=== PATIENT | male | born 1970 | race Two or more races ===

== ENCOUNTER 2018-08-06 06:59 | Inpatient (IN) | payer MEDICAID ==
[2018-08-06] VITALS (13 sets, daily range): BP systolic 125–152; BP diastolic 74–101
[~2018-08-06] VITALS: Ht 170.2 cm; Wt 92.1 kg
[~2018-08-06 06:59] MED LIST: AMLODIPINE BESYL5 MG ORAL; BUPROPION XL150 MG ORAL; PREVACID30 MG ORAL; TYLENOL EXTRA500 MG ORAL
[2018-08-06] MEDS ORDERED: ceFAZolin sod 1 GM in NS 55 ML IVPB ONE (07:00)
--- NOTE | 2018-08-06 08:39 | Pre-Procedure Note/Attestation ---
Pre-Procedure Note/Attestation Complete Prior to Procedure Planned Procedure: right Procedure Narrative: Laparascopic vs open radical nephrectomy Indications for Procedure Pre-Operative Diagnosis: renal mass Attestation I attest that I discussed the nature of the procedure; its benefits; risks and complications; and alternatives (and the risks and benefits of such alternatives ), prior to the procedure, with the patient (or the patient's legal resources representative). I attest that, if there was a reasonable possibility of needing a blood transfusion, the patient (or the patient's legal resources representative) was given the [facility] standardized written summary, pursuant to the Sixto Ruth Blood Safety Act ([place] Health and Safety Code # 1645, as amended). I attest that I re-evaluated the patient just prior to the surgery and that there has been no change in the patient's H&P, except as documented below: Saran Cali MD Aug 06, 2018 08:39
[2018-08-06] MEDS ORDERED: Bupivacaine 0.5% Inj 30 ml vial INJ ONE (08:40)
[2018-08-06] MEDS ORDERED: Lidocaine 1% MPF 10mg/ml 5ml ONE (09:10)
[2018-08-06] MEDS ORDERED: fentaNYL 100 mcg/2 mL IV ONE ×2 (09:10→09:58)
[2018-08-06] MEDS ORDERED: Midazolam 2mg/2ml Inj ONE (09:10)
[2018-08-06] MEDS ORDERED: Propofol 200mg/20ml IV ONE (09:10)
[2018-08-06] MEDS ORDERED: Zemuron 50mg/5ml Inj IV ONE (09:15)
[2018-08-06] MEDS ORDERED: Succinylcholine 20mg/ml 10ml vial ONE (09:15)
[2018-08-06] MEDS ORDERED: NS Irrig 1000ml ONE (09:21)
[2018-08-06] MEDS ORDERED: Sterile Water Irrig 1000ml IRRIG ONE (09:21)
--- NOTE | 2018-08-06 10:39 | Anethesia Preoperative Eval ---
Anesthesia Pre-op PMH/ROS General Date of Evaluation: Aug 06, 2018 Time of Evaluation: 09:15 Anesthesiologist: Eri Gee CRNA ASA Score: ASA 2 Mallampati Score Class I : Soft palate, uvula, fauces, pillars visible Class II: Soft palate, uvula, fauces visible Class III: Soft palate, base of uvula visible Class IV: Only hard plate visible Mallampati Classification: Class II Surgeon: Viraj Diagnosis: RIGHT renal cancer Surgical Procedure: RIGHT laparoscopic nephrectomy Anesthesia History: none Family History: no anesthesia problems Allergies: Coded Allergies: LATEX (Verified Allergy, Intermediate, 08/05/18) ITCHING, RASH Medications: see eMAR Patient NPO?: Yes NPO Date: Aug 05, 2018 NPO Time: 2100 Past Medical History Cardiovascular: Reports: HTN; Denies: CAD, NE, valve dz, arrhythmia, other Pulmonary: Reports: other - Heavy snoring, denies RADHA Gastrointestinal/Genitourinary: Reports: GERD - on meds, other - RIGHT renal CA diagnosed in January 2018; Denies: CRI, ESRD Neurologic/Psychiatric: Reports: depression/anxiety; Denies: dementia, CVA, TIA, other Endocrine: Denies: DM, hypothyroidism, steroids, other HEENT: Denies: cataract (L), cataract (R), glaucoma, [facility] (L), [facility] (R), other Hematology/Immune: Denies: anemia, DVT, bleeding disorder, other Musculoskeletal/Integumentary: Reports: OA - (B) knees, other - Herniated lumbar disc (+) n/t LEFT leg/foot; sciatica; Denies: RA, DJD, DDD, edema PMH Narrative: as above PSxH Narrative: Appendectomy Anesthesia Pre-op Phys. Exam Physician Exam Last Vital Signs Date Time Temp Pulse Resp B/P (MAP) Pulse Ox O2 Delivery O2 Flow Rate FiO2 08/06/18 07:39 Room Air 08/06/18 07:38 97.9 85 18 128/87 (101) 96 Constitutional: NAD Neurologic: CN 2-12 intact Cardiovascular: RRR Respiratory: CTA Gastrointestinal: S/NT/ND Airway Exam Mallampati Score: Class II MO: full ROM: full Teeth: intact Dentures: no upper, no lower Anesthesia Pre-op A/P Studies Pre-op Studies: EKG - NSR, other - CT (+) right renal tumor; no evidence of metastatic disease Risk Assessment & Plan Assessment: ASA 2 ok to proceed Plan: GETA; potential positioning injury reviewed in addition to other R/B/A on signed consent Status Change Before Surgery: No Pre-Antibiotics Drug: Eri Robb CRNA Aug 06, 2018 10:39
[2018-08-06] MEDS ORDERED: Metoclopramide 10mg/2ml Inj IVP PRN (10:45)
[2018-08-06] MEDS ORDERED: Hydromorphone 0.5mg/0.5ml inj IVP PRN (10:45)
--- NOTE | 2018-08-06 11:00 | Brief Operative Note ---
Immediate Post Operative Note Operative Note Pre-op Diagnosis: renal mass Procedure: right laparoscopic radical nephrectomy Post-op Diagnosis: same Surgeon: coleen cali Anesthesia: general Specimen: yes Complications: none Condition: stable Fluids: 1000 Estimated Blood Loss: minimal Drains: none Implant(s) used?: No Saran Cali MD Aug 06, 2018 11:00
[2018-08-06] MEDS ORDERED: Neostigmine 1mg/ml 10ml Inj ONE (11:06)
[2018-08-06] MEDS ORDERED: Glycopyrrolate 0.2mg/ml 1ml Vial ONE (11:06)
[2018-08-06] MEDS ORDERED: Dexamethasone 4mg/ml vial ONE (11:06)
--- NOTE | 2018-08-06 11:22 | Immediate Post-Op Evaluation ---
Immediate Post-Op Evalulation Immediate Post-Op Evalulation Procedure: RIGHT laparoscopic nephrectomy Date of Evaluation: Aug 06, 2018 Time of Evaluation: 11:10 IV Fluids: LR 1500 ml Estimated Blood Loss: 50 ml Urinary Output: 300 ml Blood Pressure Systolic: 148 Blood Pressure Diastolic: 74 Pulse Rate: 98 Respiratory Rate: 16 O2 Sat by Pulse Oximetry: 100 Temperature (Fahrenheit): 97.6 Pain Score (1-10): 4 Nausea: No Vomiting: No Complications none Patient Status: patent, extubated Hydration Status: adequate Drug: cefazolin Given Within 1 Hr of Incision: Yes Time Given: 09:39 Eri Gee CRNA Aug 06, 2018 11:22
[2018-08-06] MEDS ORDERED: DiphenhydrAMINE 50mg/ml Inj IVP SCH (11:42)
[2018-08-06 12:01] LABS: HEMATOCRIT 41.8 % (42.0-52.0); HEMOGLOBIN 14.1 G/DL (14.2-18.0); MEAN CORPUSCULAR VOLUME 87 FL (80-99); PLATELET COUNT 303 K/UL (150-450); RED BLOOD COUNT 4.83 M/UL (4.70-6.10); RED CELL DISTRIBUTION WIDTH 11.4 % (11.6-14.8); WHITE BLOOD COUNT 15.3 K/UL (4.8-10.8)
--- NOTE | 2018-08-06 12:04 | 48 Hour Post Anesthesia Eval ---
Post Anesthesia Evaluation Procedure: RIGHT laparoscopic nephrectomy Date of Evaluation: Aug 06, 2018 Time of Evaluation: 12:02 Blood Pressure Systolic: 139 0: 93 Pulse Rate: 86 Respiratory Rate: 20 Temperature (Fahrenheit): 97.6 O2 Sat by Pulse Oximetry: 100 Airway: patent Nausea: No Vomiting: No Pain Intensity: 4 Hydration Status: adequate Cardiopulmonary Status: stable Mental Status/LOC: patient returned to baseline Follow-up Care/Observations: per hospitalist and urology; same day admit Post-Anesthesia Complications: none Follow-up care needed: N/A Eri Gee CRNA Aug 06, 2018 12:04
[2018-08-06 12:22] LABS: ANION GAP 11 mmol/L (5-15); BLOOD UREA NITROGEN 10 mg/dL (7-18); CALCIUM 8.6 MG/DL (8.5-10.1); CARBON DIOXIDE 28 MMOL/L (21-32); CHLORIDE 103 MMOL/L (98-107); CREATININE 1.3 MG/DL (0.55-1.30); SODIUM 142 MMOL/L (136-145)
[2018-08-06] MEDS ORDERED: Norco 5mg/325mg tab ORAL PRN (13:21)
[2018-08-06] MEDS ORDERED: HYDROmorphone 1mg/ml Carpuject IVP PRN (13:21)
[2018-08-06] MEDS: D5 1/2NS w/KCl 20mEq 1,000 ML IV SCH (14:10)
--- NOTE | 2018-08-06 14:49 | History and Physical ---
History of Present Illness General Date patient seen: Aug 06, 2018 Present Illness HPI pt is admitted for right laparoscopic radical nephrectomy. Postoperatively he is admitted to surgical floor for post op care. Allergies: Coded Allergies: LATEX (Verified Allergy, Intermediate, 08/05/18) ITCHING, RASH Medication History Scheduled Amlodipine Besylate* (Amlodipine Besylate*), 7.5 MG ORAL DAILY, (Reported) Bupropion Xl* (Bupropion Xl*), 150 MG ORAL DAILY, (Reported) Lansoprazole* (Prevacid*), 30 MG ORAL BID, (Reported) Scheduled PRN Acetaminophen* (Tylenol Extra Strength*), 500 MG ORAL Q6H PRN for Mild Pain/ Temp > 100.5, (Reported) Patient History Healthcare decision maker LUKE BARROS -SISTER Resuscitation status Full Code Advanced Directive on File Review of Systems All Other Systems: negative except mentioned in HPI Physical Exam General Appearance: WD/WN Lines, tubes and drains: peripheral HEENT: normocephalic, atraumatic Neck: non-tender, normal inspection Respiratory/Chest: chest wall non-tender, lungs clear Abdomen: normal bowel sounds, soft Last 24 Hour Vital Signs Date Time Temp Pulse Resp B/P (MAP) Pulse Ox O2 Delivery O2 Flow Rate FiO2 08/06/18 12:58 97.5 88 17 127/85 98 Nasal Cannula 3 08/06/18 12:15 91 14 136/92 96 Nasal Cannula 3 08/06/18 12:05 152/101 08/06/18 12:04 86 20 100 08/06/18 12:00 94 15 152/101 95 Nasal Cannula 3 08/06/18 11:45 91 15 145/93 96 Nasal Cannula 3 08/06/18 11:30 92 17 149/95 100 Simple Mask 6 08/06/18 11:22 98 16 100 08/06/18 11:20 97 14 149/97 100 Simple Mask 6 08/06/18 11:10 97.6 98 16 148/74 100 Simple Mask 6 08/06/18 07:39 Room Air 08/06/18 07:38 97.9 85 18 128/87 (101) 96 Laboratory Tests Test 08/06/18 11:55 White Blood Count 15.3 K/UL (4.8-10.8) H Red Blood Count 4.83 M/UL (4.70-6.10) Hemoglobin 14.1 G/DL (14.2-18.0) L Hematocrit 41.8 % (42.0-52.0) L Mean Corpuscular Volume 87 FL (80-99) Mean Corpuscular Hemoglobin 29.2 PG (27.0-31.0) Mean Corpuscular Hemoglobin Concent 33.7 G/DL (32.0-36.0) Red Cell Distribution Width 11.4 % (11.6-14.8) L Platelet Count 303 K/UL (150-450) Mean Platelet Volume 7.0 FL (6.5-10.1) Neutrophils (%) (Auto) % (45.0-75.0) Lymphocytes (%) (Auto) % (20.0-45.0) Monocytes (%) (Auto) % (1.0-10.0) Eosinophils (%) (Auto) % (0.0-3.0) Basophils (%) (Auto) % (0.0-2.0) Differential Total Cells Counted 100 Neutrophils % (Manual) 89 % (45-75) H Lymphocytes % (Manual) 9 % (20-45) L Monocytes % (Manual) 2 % (1-10) Eosinophils % (Manual) 0 % (0-3) Basophils % (Manual) 0 % (0-2) Band Neutrophils 0 % (0-8) Platelet Estimate Adequate Platelet Morphology Normal Red Blood Cell Morphology Normal Sodium Level 142 MMOL/L (136-145) Potassium Level 4.0 MMOL/L (3.5-5.1) Chloride Level 103 MMOL/L (98-107) Carbon Dioxide Level 28 MMOL/L (21-32) Anion Gap 11 mmol/L (5-15) Blood Urea Nitrogen 10 mg/dL (7-18) Creatinine 1.3 MG/DL (0.55-1.30) Estimat Glomerular Filtration Rate 59.4 mL/min (>60) Glucose Level 108 MG/DL (74-106) H Calcium Level 8.6 MG/DL (8.5-10.1) Height (Feet): 5 Height (Inches): 7.00 Weight (Pounds): 196 Medications Current Medications Medications (Trade) Dose Ordered Sig/Chin Route PRN Reason Start Time Stop Time Status Last Admin Dose Admin Acetaminophen (Tylenol) 650 mg Q4H PRN ORAL FEVER 08/06/18 11:00 09/05/18 10:59 Acetaminophen (Tylenol) 650 mg Q6H PRN ORAL Mild Pain (Pain Scale 1-3) 08/06/18 11:00 09/05/18 10:59 Acetaminophen/ Hydrocodone Bitart (Curlew 5/325) 1 tab Q4H PRN ORAL Moderate Pain (Pain Scale 4-6) 08/06/18 13:21 08/13/18 13:20 Cefazolin Sodium 50 ml @ 100 mls/hr Q8H IV 08/06/18 16:00 08/07/18 00:29 Dextrose/ Electrolytes 1,000 ml @ 100 mls/hr Q10H IV 08/06/18 14:00 09/05/18 13:59 08/06/18 14:10 Docusate Sodium (Colace) 100 mg TWICE A DAY ORAL 08/06/18 18:00 09/05/18 17:59 Hydromorphone HCl (Dilaudid) 1 mg Q3H PRN IVP pain score 4-6 08/06/18 13:24 08/13/18 13:20 Ondansetron HCl (Zofran) 4 mg Q6H PRN IVP Nausea & Vomiting 08/06/18 11:00 09/05/18 10:59 Temazepam (Restoril) 7.5 mg DAILYPRN PRN ORAL Insomnia 08/06/18 11:00 08/13/18 10:59 Assessment/Plan Problem List: (1) radical nephrectomy Assessment/Plan post op care symptomatic treatment dvt prophylaxis check labs in Roxi Armas MD Aug 06, 2018 14:49
[2018-08-06] MEDS ORDERED: ceFAZolin sod 2 GM in D5W 110 ML IV SCH (16:00)
[2018-08-06] MEDS ORDERED: ceFAZolin 2gm/50ml Premix 50 ML IV SCH (16:00)
[2018-08-06] MEDS: ceFAZolin 2gm/50ml Premix 50 ML IV SCH (16:44)
[2018-08-06] MEDS: Docusate 100mg cap ORAL SCH (18:00)
[2018-08-06] MEDS: HYDROmorphone 1mg/ml Carpuject IVP PRN (21:41)
[2018-08-07] VITALS: BP 129/76
[2018-08-07] MEDS: D5 1/2NS w/KCl 20mEq 1,000 ML IV SCH ×3 (00:20→20:00)
[2018-08-07] MEDS: ceFAZolin 2gm/50ml Premix 50 ML IV SCH (00:20)
[2018-08-07 04:00] VITALS: BP 105/63
[2018-08-07] MEDS: HYDROmorphone 1mg/ml Carpuject IVP PRN ×5 (05:33→22:08)
[2018-08-07 06:21] LABS: BASOPHILS % (AUTO) 0.6 % (0.0-2.0); EOSINOPHILS % (AUTO) 0.1 % (0.0-3.0); HEMATOCRIT 38.3 % (42.0-52.0); LYMPHOCYTES % (AUTO) 11.3 % (20.0-45.0); MEAN CORPUSCULAR VOLUME 87 FL (80-99); MONOCYTES % (AUTO) 7.8 % (1.0-10.0); NEUTROPHILS % (AUTO) 80.2 % (45.0-75.0); PLATELET COUNT 273 K/UL (150-450); RED BLOOD COUNT 4.43 M/UL (4.70-6.10); RED CELL DISTRIBUTION WIDTH 11.7 % (11.6-14.8); WHITE BLOOD COUNT 13.3 K/UL (4.8-10.8)
[2018-08-07 06:56] LABS: ALANINE AMINOTRANSFERASE 23 U/L (12-78); ALBUMIN 3.6 G/DL (3.4-5.0); ALBUMIN/GLOBULIN RATIO 0.9 (1.0-2.7); ALKALINE PHOSPHATASE 53 U/L (46-116); ANION GAP 9 mmol/L (5-15); ASPARTATE AMINO TRANSFERASE 34 U/L (15-37); BILIRUBIN,TOTAL 0.7 MG/DL (0.2-1.0); BLOOD UREA NITROGEN 9 mg/dL (7-18); CALCIUM 8.6 MG/DL (8.5-10.1); CARBON DIOXIDE 27 MMOL/L (21-32); CHLORIDE 102 MMOL/L (98-107); CREATININE 1.5 MG/DL (0.55-1.30); SODIUM 138 MMOL/L (136-145)
[2018-08-07 07:06] LABS: PHOSPHORUS 3.8 MG/DL (2.5-4.9)
[2018-08-07 08:00] VITALS: BP 119/78
[2018-08-07] MEDS: Docusate 100mg cap ORAL SCH ×2 (09:41→17:30)
[2018-08-07] MEDS: BuPROPion XL 150mg tab ORAL SCH (09:42)
[2018-08-07 12:00] VITALS: BP 118/73
[2018-08-07 16:00] VITALS: BP 143/86
[2018-08-07 20:00] VITALS: BP 115/72
[2018-08-08] VITALS: BP 118/75
[2018-08-08 04:00] VITALS: BP 110/75
[2018-08-08] MEDS: HYDROmorphone 1mg/ml Carpuject IVP PRN ×4 (04:42→20:12)
[2018-08-08] MEDS: D5 1/2NS w/KCl 20mEq 1,000 ML IV SCH ×2 (06:21→15:02)
--- NOTE | 2018-08-08 07:46 | Operative Note - Dictated ---
DATE OF OPERATION: 08/06/2018 PREOPERATIVE DIAGNOSIS: Right renal mass. POSTOPERATIVE DIAGNOSIS: Right renal mass. OPERATION: Laparoscopic radical nephrectomy. OPERATED BY: Saran Cali M.D. ANESTHESIA: General. FINDINGS: Large more than 10 cm right renal mass. INDICATIONS FOR SURGERY: The patient had incidental right renal mass, found on CT with contrast, suspicious for renal cell carcinoma. The patient had multiple meetings with me, discussions regarding surgery, told him the best course of action would be laparoscopic versus open radical nephrectomy. He understands the nature of the procedure and signed a consent. DESCRIPTION OF PROCEDURE: The patient was brought to the operating room, placed in right lateral decubital position. Prepped and draped in standard fashion. Under general anesthesia, an 8 cm incision was made in the infraumbilical position and hand port was placed in the abdomen. After that, 3 additional 12 mm trocars were placed. Dissection started mobilizing the right colon from the large protruding right renal mass. After dissection was performed with blunt and sharp dissection. The ureter was . Dissection was carried around the kidney from the hepatorenal ligament mobilizing the adrenal and renal pedicle, which were all . After the kidney was removed, there was no evidence of active bleeding. Adrenal was additionally clipped and some of parts of the remaining adrenal and there was no evidence of active oozing. Surgicel was placed. Sponge count and instrument count was correct. The kidney was extracted from the remaining incision and the incision was closed with 2 layers of #0 Vicryl for the fascia and then donnie for the skin for the rest of the . The patient tolerated the procedure well. The sponge count, instrument count was correct. ESTIMATED BLOOD LOSS: 50 mL. Saran Cali M.D. DR: TRAVIS JOB#: [id number] CC:
[2018-08-08 08:35] VITALS: BP 136/75
[2018-08-08] MEDS: BuPROPion XL 150mg tab ORAL SCH (08:44)
[2018-08-08] MEDS: Docusate 100mg cap ORAL SCH ×2 (08:44→17:56)
[2018-08-08 12:00] VITALS: BP 114/75
[2018-08-08] MEDS ORDERED: Cyclobenzaprine 10mg Tab ORAL PRN (16:15)
[2018-08-08 16:46] VITALS: BP 107/68
[2018-08-08 20:00] VITALS: BP 125/80
[2018-08-09] VITALS: BP 116/74
[2018-08-09] MEDS: HYDROmorphone 1mg/ml Carpuject IVP PRN ×3 (00:33→23:08)
[2018-08-09] MEDS: D5 1/2NS w/KCl 20mEq 1,000 ML IV SCH (01:53)
[2018-08-09 04:00] VITALS: BP 117/78
[2018-08-09 08:00] VITALS: BP 114/75
[2018-08-09] MEDS: Docusate 100mg cap ORAL SCH ×2 (08:54→17:52)
[2018-08-09] MEDS: BuPROPion XL 150mg tab ORAL SCH (08:54)
[2018-08-09 12:00] VITALS: BP 127/80
[2018-08-09] MEDS: Milk of Magnesia 30ml Ud ORAL PRN (13:57)
[2018-08-09 16:00] VITALS: BP 128/78
[2018-08-09 20:00] VITALS: BP 119/86
[2018-08-10] VITALS: BP 128/75
[2018-08-10 04:00] VITALS: BP 105/76
[2018-08-10 07:43] VITALS: BP 114/70
[2018-08-10] MEDS: BuPROPion XL 150mg tab ORAL SCH (08:22)
[2018-08-10] MEDS: Docusate 100mg cap ORAL SCH (08:22)
[2018-08-10 11:39] LABS: BASOPHILS % (AUTO) 1.3 % (0.0-2.0); EOSINOPHILS % (AUTO) 6.4 % (0.0-3.0); HEMATOCRIT 41.2 % (42.0-52.0); HEMOGLOBIN 13.6 G/DL (14.2-18.0); LYMPHOCYTES % (AUTO) 25.9 % (20.0-45.0); MEAN CORPUSCULAR VOLUME 86 FL (80-99); MONOCYTES % (AUTO) 12.9 % (1.0-10.0); NEUTROPHILS % (AUTO) 53.5 % (45.0-75.0); PLATELET COUNT 319 K/UL (150-450); RED CELL DISTRIBUTION WIDTH 11.3 % (11.6-14.8); WHITE BLOOD COUNT 6.8 K/UL (4.8-10.8)
[2018-08-10 11:48] LABS: ANION GAP 8 mmol/L (5-15); BLOOD UREA NITROGEN 15 mg/dL (7-18); CALCIUM 9.9 MG/DL (8.5-10.1); CARBON DIOXIDE 28 MMOL/L (21-32); CHLORIDE 100 MMOL/L (98-107); CREATININE 1.7 MG/DL (0.55-1.30); POTASSIUM 4.5 MMOL/L (3.5-5.1); SODIUM 136 MMOL/L (136-145)
[2018-08-10] MEDS: Milk of Magnesia 30ml Ud ORAL PRN (11:49)
[2018-08-10 12:03] VITALS: BP 106/71
--- NOTE | 2018-08-12 09:09 | Discharge Summary ---
Discharge Summary Hospital Course Date of Admission Aug 06, 2018 at 06:59 Date of Discharge Aug 10, 2018 at 14:08 Admitting Diagnosis Right renal mass. Reason for Hospitalization: elective surgery HPI James Rodney is a 47 year old male who was admitted on Aug 06, 2018 at 06:59 for right renal mass. Patient was admitted for elective surgery. The patient had incidental right renal mass, found on CT with contrast, suspicious for renal cell carcinoma. The patient had multiple meetings and discussions with surgeon regarding surgery, he was told that the best course of action would be laparoscopic versus open radical nephrectomy. Patient understood the nature of the procedure and consented for surgery. Consultations dr Villalta IM Procedures s/p 08/06/[address] Cali Laparoscopic right radical nephrectomy. Hospital Course status post surgery course of recovery uneventful initially IV fluids perioperative abx pain management addressed , and pain controlled initially Dowling catheter, discontinued postop day 1, voiding freely incision clean, dry and intact with donnie ; no bleeding,no signs of infection follow up with pathology results postoperative leukocytosis resolved, patient afebrile patient ambulated freely patient tolerated diet , IV fluids discontinued GI prophylaxis provided blood pressure was managed with calcium channel rajni and remained stable bowel regimen instituted discharge instruction provided patient to follow-up outpatient with urologist as advised FINAL DIAGNOSES Right renal mass s/p right radical nephrectomy Discharge Medications Continued Medications: Acetaminophen* (Tylenol Extra Strength*) 500 Mg Tablet 500 MG ORAL Q6H PRN for Mild Pain/Temp > 100.5, TAB 0 Refills (This prescription has been renewed) Amlodipine Besylate* (Amlodipine Besylate*) 5 Mg Tablet 7.5 MG ORAL DAILY, TAB (This prescription has been renewed) Bupropion Xl* (Bupropion Xl*) 150 Mg Tab.er.24h 150 MG ORAL DAILY, TAB 0 Refills (This prescription has been renewed) Lansoprazole* (Prevacid*) 30 Mg Capsule. 30 MG ORAL BID, CAP (This prescription has been renewed) Discharge Condition Upon Discharge: stable Discharge Disposition Patient was discharged to Home () Discharge Instructions Discharge Instructions Special Instructions I have been assigned to complete a D/C Summary on this account. I was not involved in the patient management Ginger Oneal NP Aug 12, 2018 09:09
== END 2018-08-10 14:08 | disposition home or self-care (01) | DRG 443 ==
LOC: SDSOVERFLO 06:59 → 3E 13:20
PROC: 0TT04ZZ Resection of Right Kidney, Percutaneous Endoscopic Approach (ICD-10-PCS; principal; 2018-08-06 09:30)
DX: N28.89 Other specified disorders of kidney and ureter (principal); Z91.040 Latex allergy status
CPT/HCPCS: 36415; 80048; 80053; 83735; 84100; 85007; 85025; 85651; 86140; 86850; 86900; 86901; 87081; 94003; 94150; J2250; J2405; J2710